=== PATIENT | male | born 1955 | race Caucasian/White ===

== ENCOUNTER 2022-04-15 09:53 | Outpatient (CLI) | payer MEDICARE, BC, SELFPAY ==
[2022-04-15 14:08] LABS: Basophils Absolute Auto 0.04 K/uL (0.00-0.30); Basophils Percent Auto 0.6 % (0.0-3.0); Eosinophils Absolute Auto 0.14 K/uL (0.00-0.50); Hematocrit 46.2 % (37.0-53.0); Hemoglobin* 16.3 gm/dL (13.5-17.5); Immature Granulocytes Abs Auto 0.01 K/uL (0.00-0.30); Immature Granulocytes Pct Auto 0.1 %; Lymphocytes Absolute Auto 1.77 K/uL (0.90-2.90); Lymphocytes Percent Auto 25.1 % (20-44); Mean Corpuscular HGB Conc 35 gm/dL (32-36); Mean Corpuscular Hemoglobin 30 pg (26-34); Mean Corpuscular Volume 85 fL (80-100); Monocytes Percent Auto 8.8 % (0.0-11.0); Neutrophils Absolute Auto 4.46 K/uL (1.7-7.0); Neutrophils Percent Auto 63.4 % (42.0-72.0); Platelet Count* 251 K/uL (140-440); RDW Coefficient of Variation % 12.3 % (11.5-15.5); Red Blood Count 5.44 m/uL (4.30-5.90); White Blood Count* 7.04 K/uL (4.50-11.00)
[2022-04-15 14:24] LABS: Slide Review Reflex No
[2022-04-15 15:14] LABS: C Reactive Protein* < 0.5 mg/dL (0.5-1.0)
[2022-04-15 15:22] LABS: Erythrocyte SedimentationRate* 2 mm/hr (2-15)
== END 2022-04-15 09:54 | disposition home or self-care (01) ==
PROVIDERS: PCP Nurse Practitioner Family; Visit Provider Nurse Practitioner Family
DX: R32 Unspecified urinary incontinence (principal); M79.606 Pain in leg, unspecified
CPT/HCPCS: 85025; 85651; 86140; 87086; 87186

== ENCOUNTER 2022-05-02 11:32 | Outpatient (CLI) | payer MEDICARE, BC, SELFPAY | END 2022-05-02 11:33 | disposition home or self-care (01) | LOC: KYNREF 11:32 | PROVIDERS: PCP Nurse Practitioner Family; Visit Provider Nurse Practitioner Family | DX: N39.0 Urinary tract infection, site not specified (principal) | CPT/HCPCS: 87086 ==

== ENCOUNTER 2022-06-06 06:25 | Outpatient (CLI) | payer MEDICARE, BC, SELFPAY ==
[2022-06-06 15:30] LABS: PSA Diagnostic* < 0.06 ng/mL (0.10-4.00)
== END 2022-06-06 06:26 | disposition home or self-care (01) ==
LOC: KYNREF 10:03
PROVIDERS: PCP Nurse Practitioner Family; Visit Provider Nurse Practitioner Family
DX: Z85.46 Personal history of malignant neoplasm of prostate (principal)
CPT/HCPCS: 84153

== ENCOUNTER 2022-07-22 08:46 | Outpatient (CLI) | payer MEDICARE, BC, SELFPAY ==
[2022-07-24 09:32] LABS: Anaplasma phagocyt PCR Not Detected; Babesia microti by PCR Not Detected; Babesia species by PCR Not Detected; Ehrlichia chaffeensis by PCR Not Detected; Ehrlichia ewingii/canis by PCR Not Detected; Ehrlichia muris-like by PCR Not Detected
== END 2022-07-22 08:47 | disposition home or self-care (01) ==
PROVIDERS: PCP Nurse Practitioner Family; Visit Provider Nurse Practitioner Family
DX: M79.604 Pain in right leg (principal); R20.2 Paresthesia of skin; M10.9 Gout, unspecified; E78.5 Hyperlipidemia, unspecified; I10 Essential (primary) hypertension
CPT/HCPCS: 86618; 87798

== ENCOUNTER 2022-11-18 09:31 | Outpatient (CLI) | payer MEDICARE, BC, SELFPAY | END 2022-11-18 09:32 | disposition home or self-care (01) | PROVIDERS: PCP Nurse Practitioner Family; Visit Provider Nurse Practitioner Family | DX: Z85.46 Personal history of malignant neoplasm of prostate (principal) | CPT/HCPCS: 80076; 84153 ==

== ENCOUNTER 2023-12-29 09:57 | Outpatient (CLI) | payer MEDICARE, BC, SELFPAY ==
--- OUTSIDE RECORDS SUMMARY | 2023-12-29 10:03 | XMS_ITS | Clinical Summary ---
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 06/07/2021 Active triamterene-hydrochlor othiazide, 37.5-25 mg, (DYAZIDE) 37.5-25 mg capsule Take 1 Capsule by mouth once daily. 06/07/2021 Active Immunizations Name Administration Dates Next Due Influenza Virus, Unspecified 01/16/2017, 02/07/2016,01/06/2015,2013,01/12/2014,01/07/2013,01/09/2012,1 ,02/05/2005,01/22/2002 Influenza, High-dose Quadriv alent Inactivated 01/23/2022,01/17/2021 Influenza, IIV3 (Age 6-35 mos) 12/28/2009,2007 Influenza, IIV3 (Age >=3 years) 01/09/2012 Influenza, IIV4 01/08/2020, 9,01/01/2018,2016,02/07/2016 Influenza, IIV4 (=>6mos) MDV 01/06/2015 Td (Age >=7 Years) 02/10/2001 Tdap 02/28/2011 Zoster (Shingrix-RZV, recombinant) 03/23/2018, Family History Medical History Relation Name Comments Alzheimer's disease Mother Relation Name Status Comments Brother Alive Father Alive Mother Alive Sister Alive Social History Tobacco Use Types Packs/Day Years Used Date Smoking Tobacco: Former Cigarettes Q uit: 1971 Smokeless Tobacco: Former Chew Quit: 1978 Tobacco Cessation:Counseling Given: Not Answered Alcohol Use Standard Drinks/Week Comments Yes 10 (1 standard drink = 0.6 oz pu re alcohol) PHQ-2 Answer Date Recorded PHQ-2 TOTAL SCORE 0 06/04/2022 Social Connections Answer Date Recorded Frequency of Communication with Friends and Fami ly Not on file 06/04/2022 Sex and Gender Information Value Date Recorded Sex Assigned at Not on file Gender Identity Not on file Sexual Orientation Not on file Obstetrics History Last Filed Vital Signs Vital Sign Reading Time Taken Comments Blood Pressure 138/86 06/04/2022 4:12 PM CDT Pulse 75 06/04/2022 4:12 PM CDT Temperature - - Respiratory Rate - - Oxygen Saturation - - Inhaled Oxygen Concentration - - Weight 98 kg (216 lb) 06/04/2022 4:12 PM CDT Height 182.9 cm (6') 06/04/2022 4:12 PM CDT Body Mass Index 29.29 06/04/2022 4:12 PM CDT Plan of Treatment Health Maintenance Due Date Last Done Comments Hepatitis C screening for ag e 18-79 1973 Colonoscopy through age 75 02/02/2000 Lipids for age 45-75 02/02/2000 Medicare Wellness for age 65+ 02/02/2020 Pneumococcal series for age 65+ (1 of 1 - PCV) 02/02/2020 Tetanus booster 02/28/2021 02/28/2011, 02/10/2001 BMI (ht and wt on same day) for age 18+ 06/05/2023 06/04/2022 Depression screening for age 12+ 06/05/2023 06/05/19 23 COVID-19 vaccine series ( season) 2023 03/28/2021, 06/23/2020, 05/26/2020 Influenza for age 65+ 11/23/2023 01/23/2022 , 01/17/2021, 01/08/2020, Additional history exists Tdap Completed 02/28/2011 Zoster (shingles) series for age 50+ Completed 03/23/2018, 01/01/2018 Care Teams Communications Tower Climber Relationship Specialty Start Date End Date Pcp, No . PCP - General 02/10/23
== END 2023-12-29 09:58 | disposition home or self-care (01) ==
PROVIDERS: PCP Nurse Practitioner Family; Visit Provider Nurse Practitioner Family
DX: E78.5 Hyperlipidemia, unspecified (principal); I10 Essential (primary) hypertension; Z85.46 Personal history of malignant neoplasm of prostate; Z12.5 Encounter for screening for malignant neoplasm of prostate
CPT/HCPCS: 80053; 80061; 85025; G0103

== ENCOUNTER 2024-03-11 06:22 | Outpatient (CLI) | payer MEDICARE, BC, SELFPAY ==
--- NOTE | 2024-03-11 07:58 | W.ANESCHARGE ---
Anesthesia Charges Start Date/Time Anesthesia Start Date: 03/11/24 Anesthesia Start Time: 07:22 Stop Date/Time Anesthesia Stop Date: 03/11/24 Anesthesia Stop Time: 07:52
--- NOTE | 2024-03-11 08:40 | W.ANESCHARGE ---
Anesthesia Charges Start Date/Time Anesthesia Start Date: 03/11/24 Anesthesia Start Time: 07:22 Stop Date/Time Anesthesia Stop Date: 03/11/24 Anesthesia Stop Time: 07:52
== END 2024-03-11 06:23 | disposition home or self-care (01) ==
LOC: OP CLINIC 06:22
PROVIDERS: PCP Nurse Practitioner Family; Visit Provider Surgery
DX: Z12.11 Encounter for screening for malignant neoplasm of colon (principal); D12.0 Benign neoplasm of cecum; D12.2 Benign neoplasm of ascending colon; D12.8 Benign neoplasm of rectum; Z86.0100 Personal history of colon polyps, unspecified
CPT/HCPCS: 00811; 45385; 88304; J2704

== ENCOUNTER 2024-07-12 11:21 | Outpatient (CLI) | payer MEDICARE, BC, SELFPAY | END 2024-07-12 11:22 | disposition home or self-care (01) | LOC: KYNREF 11:24 | PROVIDERS: PCP Nurse Practitioner Family; Visit Provider Nurse Practitioner Family | DX: Z13.29 Encounter for screening for other suspected endocrine disorder (principal) | CPT/HCPCS: 84443 ==

== ENCOUNTER 2024-12-27 10:49 | Outpatient (CLI) | payer MEDICARE, BC, SELFPAY | END 2024-12-27 10:50 | disposition home or self-care (01) | PROVIDERS: PCP Nurse Practitioner Family; Visit Provider Nurse Practitioner Family | DX: E78.5 Hyperlipidemia, unspecified (principal); I10 Essential (primary) hypertension; Z13.0 Encounter for screening for diseases of the blood and blood-forming organs and certain disorders involving the immune mechanism; Z85.46 Personal history of malignant neoplasm of prostate; Z12.5 Encounter for screening for malignant neoplasm of prostate | CPT/HCPCS: 80053; 80061; 85025; G0103 ==

== ENCOUNTER 2025-02-25 13:03 | Outpatient (CLI) | payer MEDICARE, BC, SELFPAY | END 2025-02-25 13:04 | disposition home or self-care (01) | LOC: KYNREF 13:03 | PROVIDERS: PCP Nurse Practitioner Family; Visit Provider Nurse Practitioner Family | DX: L02.91 Cutaneous abscess, unspecified (principal) | CPT/HCPCS: 87070 ==

== ENCOUNTER 2025-03-08 09:34 | Outpatient (CLI) | payer MEDICARE, BC, SELFPAY | END 2025-03-08 09:35 | disposition home or self-care (01) | PROVIDERS: PCP Nurse Practitioner Family; Visit Provider Nurse Practitioner Family | DX: R19.7 Diarrhea, unspecified (principal) | CPT/HCPCS: 82728; 82784; 83540; 85025; 86231; 86258; 86364 ==